=== PATIENT | male | born 1930 | race Caucasian/White ===

== ENCOUNTER → 2017-04-21 | Outpatient (CLI) | payer MEDICARE ==
[~2017-04-21] MED LIST: ATOR10; LOTR5CAP2
--- NOTE | 2017-04-22 08:49 | RADRPT ---
EXAM DATE/TIME: 04/22/2017 00:00 [place] COMPARISON: No previous studies available for comparison. INDICATIONS : CT guided biopsy of inguinal lymph node HPI: 86-year-old gentleman with history of prostate cancer. Patient has an elevated PSA. 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 CT scan shows minimally enlarged lymph nodes within th e pelvis. Biopsy of the lymph nodes requested. PMH: Extensive. Hypertension, gastroesophageal reflux disease, osteoarthritis, cataract, hemorrhoids, wilberto pheral neuropathy, vertigo PSH: Right inguinal hernia repair, tonsillectomy, prostate biopsy in 2016, carpal tunnel surgery 2013 ALLERGIES: Gabapentin, Levaquin, Lexapro CURRENT MEDICATIONS: aspirin, amlodipine, lorazepam, PHYSICAL EXAMINATION: See Dr. Eller" H&P IMAGING STUDIES: CT of the pelvis from [facility] March 31, 2017. The CT images show tiny lymph nodes within the pelvis. These range in size 7-10 mm. There size and location prevent Y. outsi. DISCUSSION: The small size and location of these lymph nodes within the pelvis were not allow percutaneous biopsy . PLAN: Consider short-term followup study to document any change. TIME SPENT: 15 minutes CONCLUSION: The small size of these lymph nodes and their location prevent percutaneous biopsy of these lymph nod es. Consider a short term followup CT of the pelvis to document any change. Andrew Lee Jr., MD on April 22, 2017 at 8:40 Board Certified Radiologist. This report was verified electronically.
== END ==
LOC: HRAD 15:55
PROVIDERS: ATTEND Internal Medicine Hematology & Oncology
DX: R97.20 Elevated prostate specific antigen [PSA] (principal); Z85.46 Personal history of malignant neoplasm of prostate